=== PATIENT | female | born 2000 | race Caucasian/White ===

== ENCOUNTER 2018-10-24 14:15 | Emergency (ER) | payer OTHER ==
[~2018-10-24] VITALS: Ht 162.6 cm; Wt 76.9 kg
[2018-10-24 14:17] VITALS: TEMP 99.4
[2018-10-24] MEDS ORDERED: ZOLOFT 50MG50 MG PO (14:42)
[2018-10-24] MEDS ORDERED: ELIQUIS 2.5 PO (14:42)
[2018-10-24 15:08] LABS: BASO % 0.5 % (0.0-2.0); EOS # 0.1 (0.0-0.7); EOS % 1.5 % (0-4.0); GRAN # 3.3 (1.4-6.5); GRAN % 52.9 % (42.2-75.2); HEMOGLOBIN 14.3 g/dl (12.0-15.0); LYMPH # 2.4 (1.2-3.4); LYMPH % 38.6 % (20.0-51.0); MEAN CELL VOLUME 89 fl (80.0-95.0); MEAN CORPUSCULAR HEMOGLOBIN 29 pg (26.0-32.0); MEAN CORPUSCULAR HGB CONC 33 g/dl (33.0-37.0); MONO # 0.4 (0.1-0.6); MONO % 6.3 % (1.7-9.3); PLATELET COUNT 405 K/mm3 (130-400); RED BLOOD COUNT 4.86 M/mm3 (4.10-5.30); REDCELL DISTRIBUTION WIDTH-CV 12.6 % (11.5-14.5)
[2018-10-24 15:50] VITALS: BP 120/68; PULSE 82
== END 2018-10-24 15:50 | disposition home or self-care (01) ==
LOC: COL.ER 14:15
PROVIDERS: Physician Assistant
DX: D68.51 Activated protein C resistance (principal); M79.652 Pain in left thigh; Z86.718 Personal history of other venous thrombosis and embolism; Z79.01 Long term (current) use of anticoagulants; F41.9 Anxiety disorder, unspecified; F32.9 Major depressive disorder, single episode, unspecified

== ENCOUNTER → 2020-01-18 | Outpatient (CLI) | payer OTHER ==
[~2020-01-18] MED LIST: ELIQUIS 2.5 PO; ZOLOFT 50MG50 MG PO
== END ==
LOC: ZCOL.LAB 19:57
DX: R05 Cough (principal); R06.02 Shortness of breath; Z20.828 Contact with and (suspected) exposure to other viral communicable diseases